=== PATIENT | female | born 1975 | race Two or more races ===

== ENCOUNTER 2020-02-20 09:57 | Emergency (ER) | payer OTHER ==
[~2020-02-20] VITALS: Ht 160 cm; Wt 72.6 kg
[2020-02-20] MEDS ORDERED: COZAAR25 MG PO (10:34)
== END 2020-02-20 14:56 | disposition home or self-care (01) ==
LOC: ER 09:57
DX: S13.4XXA Sprain of ligaments of cervical spine, initial encounter (principal); S00.03XA Contusion of scalp, initial encounter; W01.198A Fall on same level from slipping, tripping and stumbling with subsequent striking against other object, initial encounter; Y93.89 Activity, other specified; Y92.098 Other place in other non-institutional residence as the place of occurrence of the external cause; Y99.8 Other external cause status

== ENCOUNTER 2022-09-03 11:20 | Emergency (ER) | payer OTHER ==
[~2022-09-03] VITALS: Ht 157.5 cm; Wt 72.6 kg
[~2022-09-03 11:20] MED LIST: COZAAR25 MG PO
== END 2022-09-03 16:14 | disposition home or self-care (01) ==
LOC: ER 11:20
DX: S62.101A Fracture of unspecified carpal bone, right wrist, initial encounter for closed fracture (principal); W19.XXXA Unspecified fall, initial encounter; Y93.89 Activity, other specified; Y92.89 Other specified places as the place of occurrence of the external cause; Y99.8 Other external cause status; I10 Essential (primary) hypertension